=== PATIENT | female | born 1975 | race Caucasian/White ===

== ENCOUNTER → 2017-11-15 | Outpatient (CLI) | payer OTHER ==
[~2017-11-15] MED LIST: BIRTH CONTROL; HYDACE5 PO; IBUP600; Naprosyn500 MG PO; PENVK500 PO
== END ==
LOC: LAB SHORT 13:55 → OLS 13:55
PROVIDERS: Nurse Practitioner Women's Health
DX: Z12.72 Encounter for screening for malignant neoplasm of vagina (principal); Z91.89 Other specified personal risk factors, not elsewhere classified
CPT/HCPCS: 87624; G0123

== ENCOUNTER 2018-08-28 15:17 | Emergency (ER) | payer OTHER ==
[~2018-08-28] VITALS: Ht 170.2 cm; Wt 104.3 kg
[2018-08-28 15:41] LABS: BASOPHILS ABSOLUTE AUTO 0.03 K/mm3 (0.00-0.23); BASOPHILS PERCENT AUTO 1 % (0-2); EOSINOPHILS ABSOLUTE AUTO 0.12 K/mm3 (0.00-0.68); EOSINOPHILS PERCENT AUTO 2 % (0-6); Hematocrit 39.6 % (33.0-51.0); Hemoglobin 13.4 g/dL (11.5-16.0); IMMATURE GRAN ABSOLUTE AUTO 0.01 K/mm3 (0.00-0.10); IMMATURE GRAN PERCENT AUTO 0 % (0-1); LYMPHOCYTES ABSOLUTE AUTO 2.38 K/mm3 (0.84-5.20); LYMPHOCYTES PERCENT AUTO 43 % (21-46); MONOCYTES ABSOLUTE AUTO 0.38 K/mm3 (0.16-1.47); MONOCYTES PERCENT AUTO 7 % (4-13); Mean Corpuscular HGB 31.2 pg (26.0-34.0); Mean Corpuscular HGB Conc 33.8 g/dL (31.5-36.5); Mean Corpuscular Volume 92 fL (80-100); Mean Platelet Volume 10.8 fL (9.1-12.4); NEUTROPHILS ABSOLUTE AUTO 2.58 K/mm3 (1.96-9.15); NEUTROPHILS PERCENT AUTO 47 % (41-73); Platelet Count 217 K/mm3 (150-400); RDW Coefficient Variation 11.6 % (11.7-14.2); RDW Standard Deviation 39.2 fL (35.1-46.3)
[2018-08-28 15:58] LABS: Alanine Aminotransfer (ALT/SGP 18 U/L (12-78); Albumin, Blood 4.1 g/dL (3.4-5.0); Albumin/Globulin Ratio 1.1 (0.8-1.8); Alk Phos 77 U/L (50-136); Anion Gap 4 mmol/L (6-16); Aspartate Aminotrans (AST/SGOT 9 U/L (12-37); Bilirubin, Total 0.3 mg/dL (0.1-1.0); Blood Urea Nitrogen 17 mg/dL (8-24); Bun/Creatinine Ratio 19.1 (12.0-20.0); CO2, Blood 29 mmol/L (21-32); Calcium, Blood 9.3 mg/dL (8.5-10.1); Chloride, Blood 112 mmol/L (98-108); Creatinine, Blood 0.89 mg/dL (0.40-1.00); Globulin, Blood 3.9 g/dL (2.2-4.0); Glomerular Filtration Rate >60 (60-); Glucose, Blood 78 mg/dL (70-99); Potassium, Blood 3.7 mmol/L (3.5-5.5); Sodium, Blood 145 mmol/L (136-145)
[2018-08-28] MEDS ORDERED: CIPR500 PO (17:14)
[2018-08-28] MEDS ORDERED: Norco 5-325 Ta1 EACH PO (17:14)
== END 2018-08-28 17:24 | disposition home or self-care (01) ==
LOC: ER 15:17
PROVIDERS: Physician Assistant
DX: K80.50 Calculus of bile duct without cholangitis or cholecystitis without obstruction (principal)
CPT/HCPCS: 36415; 76705; 80053; 83690; 85025; 96361; 96374; 96375; 99284-25; J2405; J3010; J7030

== ENCOUNTER 2019-08-08 14:07 | Emergency (ER) | payer OTHER ==
[~2019-08-08] VITALS: Ht 172.7 cm; Wt 105.9 kg
[~2019-08-08 14:07] MED LIST changes: +CIPR500 PO; +ESTRADIOL1 MG PO; +Norco 5-325 Ta1 EACH PO
[2019-08-08] MEDS ORDERED: IBUP400 PO (14:44)
== END 2019-08-08 15:02 | disposition home or self-care (01) ==
LOC: ER 14:07
DX: R07.81 Pleurodynia (principal)
CPT/HCPCS: 99283; A9270-GY

== ENCOUNTER 2019-08-18 10:34 | Emergency (ER) | payer OTHER ==
[~2019-08-18] VITALS: Ht 172.7 cm; Wt 102.1 kg
[~2019-08-18 10:34] MED LIST changes: +IBUP400 PO
[2019-08-18] MEDS ORDERED: TYLECOD3 PO (11:36)
== END 2019-08-18 11:54 | disposition home or self-care (01) ==
LOC: ER 10:34
DX: S20.212A Contusion of left front wall of thorax, initial encounter (principal); X58.XXXA Exposure to other specified factors, initial encounter
CPT/HCPCS: 71046; 99283-25